=== PATIENT | female | born 1955 | race Caucasian/White ===

== ENCOUNTER 2016-11-23 20:46 | Inpatient (IN) | payer OTHER ==
[~2016-11-23] VITALS: Ht 172.7 cm; Wt 81.8 kg
[2016-11-23 21:10] LABS: BASO # 0.1 x10^3/uL (0.0-0.2); BASO % 1 % (0-3); EOS % 2 % (0-3); HEMATOCRIT 46.2 % (36.0-47.0); HEMOGLOBIN 15.1 g/dL (12.0-15.5); LYMPH # 6.3 x10^3/uL (1.0-4.8); LYMPH % 41 % (24-48); MEAN CORPUSCULAR HEMOGLOBIN 30 pg (25-35); MEAN CORPUSCULAR HGB CONC 33 g/dL (31-37); MEAN CORPUSCULAR VOLUME 92 fL (79-100); MONO % 9 % (0-9); NEUT % 47 % (31-73); PLATELET COUNT 336 x10^3/uL (140-400); RED BLOOD COUNT 5.01 x10^6/uL (3.50-5.40); WHITE BLOOD COUNT 15.4 x10^3/uL (4.0-11.0)
[2016-11-23] MEDS ORDERED: ASPIRIN 81 MG TAB.CHEW PO ONE ×2 (21:15→23:00)
[2016-11-23 21:21] LABS: INR 0.9 (0.8-1.1); PROTHROMBIN TIME PATIENT 11.4 SEC (11.7-14.0)
[2016-11-23 21:24] LABS: CALCIUM 9.8 mg/dL (8.5-10.1); CREATININE 0.9 mg/dL (0.6-1.0); GFR 63.9; POTASSIUM 3.6 mmol/L (3.5-5.1)
[2016-11-23 21:30] LABS: TOTAL BILIRUBIN 0.4 mg/dL (0.2-1.0)
[2016-11-23] MEDS ORDERED: NITROGLYCERIN SUBLINGUAL 0.4 MG BOTTLE OF 25. SL PRN (22:15)
[2016-11-23] MEDS ORDERED: ENOXAPARIN ** NOTE DOSE ** SYRINGE SQ ONE (22:15)
[2016-11-23] MEDS ORDERED: MORPHINE SULFATE 2 MG/ML DISP.SYRIN. IV PRN ×2 (22:15)
[2016-11-23] MEDS ORDERED: ONDANSETRON PF 4 MG/2 ML VIAL. IV PRN (22:15)
--- NOTE | 2016-11-23 22:15 | PHYS DOC ---
Past Medical History Past Medical History: Anxiety, Depression, Diabetes-Type II, High Cholesterol, Hypertension Past Surgical History: Hysterectomy, Other Additional Past Surgical Histo: PNEUMOTHORAX,"HOLE IN DIAPHRAGM",OVARIAN CYST Additional Information: 1 PPD Alcohol Use: None Drug Use: None Adult General Chief Complaint Chief Complaint: CHEST PAIN HPI HPI 61-year-old female presenting to the emergency department today with left-sided chest pain intermittently over the past few days. She describes it as a pressure radiates to her left shoulder and has an intermittent shortness of breath. She denies cough nausea vomiting or diaphoresis. She has a history of diabetes high cholesterol hypertension family history of heart disease and has a history of smoking. She denies history of blood clot family history of blood clot unilateral leg swelling hemoptysis. Review of systems is negative for nausea vomiting diaphoresis abdominal pain fevers or chills. All other review of systems is negative unless otherwise noted in history of present illness. Review of Systems Review of Systems SEE ABOVE. Current Medications Current Medications Current Medications Medications (Trade) Dose Ordered Sig/Vamsi Start Time Stop Time Status Last Admin Dose Admin Aspirin (Children'S Aspirin) 324 mg 1X ONCE 11/23/16 21:15 11/23/16 21:55 DC Allergies Allergies Allergies Coded Allergies Type Severity Reaction Last Updated Verified No Known Drug Allergies 11/23/16 No Physical Exam Physical Exam Constitutional: Well developed, well nourished, no acute distress, non-toxic appearance. HENT: Normocephalic, atraumatic, bilateral external ears normal, oropharynx moist, no oral exudates, nose normal. [] Eyes: PERRLA, EOMI, conjunctiva normal, no discharge. Neck: Normal range of motion, no tenderness, supple, no stridor. [] Cardiovascular:Heart rate regular rhythm, no murmur [] Lungs & Thorax: Bilateral breath sounds clear to auscultation Abdomen: Bowel sounds normal, soft, no tenderness, no masses, no pulsatile masses. [] Skin: Warm, dry, no erythema, no rash. Back: No tenderness, no CVA tenderness. [] Extremities: No tenderness, no cyanosis, no clubbing, ROM intact, no edema. Neurologic: Alert and oriented X 3, normal motor function, normal sensory function, no focal deficits noted. [] Psychologic: Affect normal, judgement normal, mood normal. Current Patient Data Vital Signs Vital Signs Date Time Temp Pulse Resp B/P Pulse Ox O2 Delivery O2 Flow Rate FiO2 11/23/16 21:50 84 139/67 95 Room Air 11/23/16 20:53 97.8 32 97.8 Lab Values Laboratory Tests Test 11/23/16 21:00 White Blood Count 15.4x10^3/uL (4.0-11.0) H Red Blood Count 5.01x10^6/uL (3.50-5.40) Hemoglobin 15.1g/dL (12.0-15.5) Hematocrit 46.2% (36.0-47.0) Mean Corpuscular Volume 92fL (79-100) Mean Corpuscular Hemoglobin 30pg (25-35) Mean Corpuscular Hemoglobin Concent 33g/dL (31-37) Red Cell Distribution Width 14.0% (11.5-14.5) Platelet Count 336x10^3/uL (140-400) Neutrophils (%) (Auto) 47% (31-73) Lymphocytes (%) (Auto) 41% (24-48) Monocytes (%) (Auto) 9% (0-9) Eosinophils (%) (Auto) 2% (0-3) Basophils (%) (Auto) 1% (0-3) Neutrophils # (Auto) 7.2x10^3uL (1.8-7.7) Lymphocytes # (Auto) 6.3x10^3/uL (1.0-4.8) H Monocytes # (Auto) 1.4x10^3/uL (0.0-1.1) H Eosinophils # (Auto) 0.3x10^3/uL (0.0-0.7) Basophils # (Auto) 0.1x10^3/uL (0.0-0.2) Prothrombin Time 11.4SEC (11.7-14.0) L Prothrombin Time INR 0.9 (0.8-1.1) PTT 34SEC (24-38) Sodium Level 140mmol/L (136-145) Potassium Level 3.6mmol/L (3.5-5.1) Chloride Level 100mmol/L (98-107) Carbon Dioxide Level 31mmol/L (21-32) Anion Gap 9 (6-14) Blood Urea Nitrogen 10mg/dL (7-20) Creatinine 0.9mg/dL (0.6-1.0) Estimated GFR (Cockcroft-Gault) 63.9 BUN/Creatinine Ratio 11 (6-20) Glucose Level 120mg/dL (70-99) H Calcium Level 9.8mg/dL (8.5-10.1) Total Bilirubin 0.4mg/dL (0.2-1.0) Aspartate Amino Transferase (AST) 15U/L (15-37) Alanine Aminotransferase (ALT) 18U/L (14-59) Alkaline Phosphatase 72U/L (46-116) Troponin I Quantitative 0.384ng/mL (0.000-0.055) CO-Yct-Z-Type Natriuretic Peptide 1053pg/mL (0-124) H Total Protein 8.0g/dL (6.4-8.2) Albumin 4.0g/dL (3.4-5.0) Albumin/Globulin Ratio 1.0 (1.0-1.7) Lipase 227U/L (73-393) Laboratory Tests 11/23/16 21:00 Laboratory Tests 11/23/16 21:00 EKG EKG [] EKG shows sinus rhythm with a regular rate. [place] is leftward. Intervals are within normal limits. Mild ST depression in lead V5 and V6. Radiology/Procedures Radiology/Procedures [] Chest x-ray shows no obvious infiltrate or pneumothorax. Course & Med Decision Making Course & Med Decision Making Pertinent Labs and Imaging studies reviewed. (See chart for details) [] 61-year-old female presenting to the emergency department today with chest pain. Afebrile with mild tachypnea and elevated blood pressure. Otherwise physical exam unremarkable. Clear lungs to auscultation. EKG shows mild ST depression. Troponin positive. Aspirin given. Lovenox given. Elevated leukocytosis without obvious infiltrate on x-ray. Patient afebrile. Otherwise proBNP mildly elevated. Patient was subsequently admitted to our hospital for further evaluation workup and care. Cardiology consultation was placed. Dragon Disclaimer Dragon Disclaimer This electronic medical record was generated, in whole or in part, using a voice recognition dictation system. Departure Departure Impression: Primary Impression: NSTEMI (non-ST elevated myocardial infarction) Disposition: 09 ADMITTED INPATIENT Admitting Physician: Crystal Cooper Condition: STABLE YOLANDE CARLISLE MD Nov 23, 2016 22:15
[2016-11-24] VITALS (7 sets, daily range): BP systolic 122–156; BP diastolic 68–78
[2016-11-24] MEDS ORDERED: PNEUMOCOCCAL VAX SCREEN BY RX. MC ONE (01:45)
[2016-11-24] MEDS ORDERED: INFLUENZA VAX SCREEN BY RX. MC ONE (01:45)
[2016-11-24] MEDS ORDERED: METF10002 PO (02:02)
[2016-11-24] MEDS ORDERED: HYDR12.53 PO (02:03)
[2016-11-24] MEDS ORDERED: FLUO20CA8 PO (02:04)
[2016-11-24] MEDS ORDERED: SIMV80TA3 PO (02:05)
[2016-11-24 05:18] LABS: BASO # 0.1 x10^3/uL (0.0-0.2); BASO % 0 % (0-3); EOS % 3 % (0-3); HEMATOCRIT 41.9 % (36.0-47.0); LYMPH # 6.7 x10^3/uL (1.0-4.8); LYMPH % 48 % (24-48); MEAN CORPUSCULAR HEMOGLOBIN 30 pg (25-35); MEAN CORPUSCULAR HGB CONC 33 g/dL (31-37); MEAN CORPUSCULAR VOLUME 91 fL (79-100); MONO % 10 % (0-9); NEUT % 39 % (31-73); PLATELET COUNT 337 x10^3/uL (140-400); RED BLOOD COUNT 4.62 x10^6/uL (3.50-5.40); WHITE BLOOD COUNT 14.2 x10^3/uL (4.0-11.0)
[2016-11-24 05:26] LABS: CALCIUM 9.4 mg/dL (8.5-10.1); CREATININE 0.8 mg/dL (0.6-1.0); GFR 73.2; POTASSIUM 3.8 mmol/L (3.5-5.1)
[2016-11-24] MEDS ORDERED: ALPRAZOLAM 1 MG TABLET PO PRN (07:30)
--- NOTE | 2016-11-24 08:21 | RAD ---
Single view chest History:Left side chest pain radiating to the left arm today An AP view of the chest is submitted. Comparison: 05/02/2008. Findings: There is no significant infiltrate, pleural effusion, or pneumothorax. The pericardial cardiac silhouette is within normal limits in size. The trachea is in the midline. There is again likely granuloma left lung base. Impression: There is no radiographic evidence of acute cardiopulmonary disease.
[2016-11-24] MEDS ORDERED: FLU VACC QUAD 2016-17 (36MOS+)/PF 0.5 ML SYRINGE. VAX IM ONE (09:00)
[2016-11-24] MEDS ORDERED: PNEUMOC CONJ VACC 23-VALENT 0.5 ML VIAL. VAX IM ONE (09:00)
[2016-11-24] MEDS: METFORMIN 1,000 MG TABLET PO SCH ×2 (09:42→17:16)
[2016-11-24] MEDS: HYDROCHLOROTHIAZIDE 12.5 MG CAPSULE. PO SCH (09:42)
[2016-11-24] MEDS ORDERED: ZOLPIDEM 5 MG TABLET. PO PRN (10:30)
[2016-11-24] MEDS ORDERED: NITROGLYCERIN SUBLINGUAL 0.4 MG BOTTLE OF 25. SL PRN (10:30)
[2016-11-24] MEDS ORDERED: 0.9 % SODIUM CHLORIDE 10 ML DISP.SYRIN. IV PRN (10:30)
--- NOTE | 2016-11-24 10:40 | PDOC ---
Provider Note Provider Note H&P dictated # [id number], chest pain with slightly elevated troponin in a pt that has a long history of smoking, HTN, DM, HLP and anxiety admitted for further cardiac testing Sandra JUÁREZ MD Nov 24, 2016 10:40
[2016-11-24 11:08] LABS: CKMB INDEX 3.4 % (0-4); CKMB MASS 3.2 ng/mL (0.0-3.6)
[2016-11-24] MEDS ORDERED: DEXTROSE 50% 25 GM / 50ML DISP.SYRIN. IV PRN (11:15)
[2016-11-24] MEDS ORDERED: ANTI-COAG MONITOR BY PHARMACY. MC PRN (11:15)
[2016-11-24] MEDS: INSULIN ASPART 300 UNITS/3 ML INSULN.PEN SQ SCH ×2 (12:00→17:00)
[2016-11-24] MEDS: SENNOSIDES/DOCUSATE 8.6/50MG TABLET. PO SCH ×2 (12:29→21:15)
[2016-11-24] MEDS: ENOXAPARIN ** NOTE DOSE ** SYRINGE SQ SCH ×2 (12:30→21:16)
--- NOTE | 2016-11-24 12:44 | CONS ---
DATE OF CONSULTATION: 11/24/2016 REASON FOR CONSULTATION: Elevated troponin. HISTORY OF PRESENT ILLNESS: The patient is a 61-year-old woman with past medical history as noted below, who comes into the hospital with chest pain. She reports over the course of the last few weeks and most prominently over the last few days, she has had chest pain that wakes her up at nighttime. During the day most of the time, she does not have any significant exertional dyspnea. She has not had any changes to her medical therapy. She reports compliance with her medical therapy. She denies any prior cardiovascular interventions. In the past, remotely about 10 years ago, she had sepsis and received intravenous antibiotics, but otherwise no obvious cardiovascular collapse has been noted in the past. PAST MEDICAL HISTORY: 1. Hypertension. 2. Tobacco abuse. 3. Dyslipidemia. 4. Diabetes. ALLERGIES: No known drug allergies, but SHE DOES HAVE ALLERGIES TO nickel. FAMILY HISTORY: Notable for congestive heart failure in her mother at the age of 55. SOCIAL HISTORY: The patient is and smokes approximately 1 pack per day. Denies any alcohol or illicit drug use. REVIEW OF SYSTEMS: Negative for 10 out of 14 systems reviewed, unless otherwise mentioned above in the HPI. MEDICATIONS: 1. Simvastatin 80 mg at bedtime. 2. Lovenox 80 mg subQ b.i.d. PHYSICAL EXAMINATION: VITAL SIGNS: Afebrile, heart rate 80, blood pressure 144/75, pulse ox 98% on 2liters, respiratory rate 18. GENERAL: She is alert and oriented and in mild distress due to chronic musculoskeletal pain. HEAD AND NECK: Unremarkable. CARDIAC: Regular rate and rhythm without any murmurs, rubs or gallops. LUNGS: Clear. ABDOMEN: Soft, nontender, nondistended. EXTREMITIES: Without any clubbing, cyanosis or edema. NEUROLOGIC: No focal deficits. MUSCULOSKELETAL: No trauma. DIAGNOSTIC STUDIES: 1. Cardiac enzymes are elevated initially at 0.3 and now at 0.8. 2. Creatinine, INR and CBC are within normal limits. 3. Chest x-ray is unremarkable. 4. EKG is unremarkable. IMPRESSION: 1. Chest pain with an elevated troponin consistent with non-ST elevation myocardial infarction. 2. Hypertension. 3. Tobacco abuse. RECOMMENDATIONS: 1. I had a long discussion with the patient about various approaches to treatment including noninvasive evaluation as well as invasive cardiac catheterization. -At this time, given her multiple risk factors and troponin elevation without any clear source other than ischemia to explain it such as hypertensive urgency, we will plan to rule out any obstructive coronary disease by obtaining a coronary angiogram on Saturday. -We will initiate her on Lovenox 80 mg subQ b.i.d. for anticoagulation. Continue statin and aspirin and we will initiate her on low dose beta blockade. Thank you for this consultation. JONAS LAUREN MD DR: EVELYN/adriana JOB#: [id number] / [id number] JODY
[2016-11-24] MEDS ORDERED: HEPARIN PF for SUB-Q USE 5,000 UNIT/0.5 ML VIAL. SQ SCH (14:00)
--- NOTE | 2016-11-24 14:08 | EKG ---
[facility] [address] [place] [address] Test Date: 2016-11-24 Test Time: 13:57:32 Pat Name: YUDELKA MELGAR Department: Room: 211 1 Gender: F Engineering Faculty: : 1955 Requested By: Sandra JUÁREZ Order Number: [id number] Reading MD: Miriam Lewis Measurements Intervals [place] Rate: 72 P: 36 CA: 186 QRS: -34 QRSD: 78 T: 64 QT: 392 QTc: 431 Interpretive Statements SINUS RHYTHM NORMAL ECG RI6.01 No previous ECG available for comparison Electronically Signed On 11-25-2016 19:12:04 PARTS COUNTERMAN by Miriam Lewis
[2016-11-24 17:02] LABS: CKMB INDEX 2.6 % (0-4); CKMB MASS 2.4 ng/mL (0.0-3.6)
--- NOTE | 2016-11-24 18:47 | EKG ---
[facility] [address] [place] [address] Test Date: 2016-11-23 Test Time: 20:56:10 Pat Name: YUDELKA MELGAR Department: Room: 211 1 Gender: F Director Of Collections: YVONNE EMT : 1955 Requested By: MILTON DÍAZ Order Number: [id number] Reading MD: Miriam Lewis Measurements Intervals [place] Rate: 80 P: 49 AL: 178 QRS: -28 QRSD: 80 T: 64 QT: 376 QTc: 437 Interpretive Statements SINUS RHYTHM LEFTWARD AXIS NORMAL ECG RI6.01 No previous ECG available for comparison Electronically Signed On 11-25-2016 19:00:45 PROJECT DEVELOPMENT ENGINEER by Miriam Lewis
[2016-11-24] MEDS ORDERED: SIMVASTATIN 40 MG TABLET. PO SCH (21:00)
[2016-11-24] MEDS: METOPROLOL TART IMMED RELEASE 25 MG TABLET PO SCH (21:17)
[2016-11-25 02:11] LABS: CKMB INDEX 2.1 % (0-4); CKMB MASS 1.5 ng/mL (0.0-3.6)
[2016-11-25 02:16] VITALS: BP 119/66
--- NOTE | 2016-11-25 03:02 | HP ---
ADMIT DATE: 11/23/2016 ADMISSION DIAGNOSIS: Chest pain, abnormal troponin and possible non-STEMI. HISTORY OF PRESENT ILLNESS: This is a 61-year-old white female without known coronary artery disease who has hypertension, hyperlipidemia, type 2 diabetes and anxiety and continues to smoke, who developed some cold and flu symptoms last week. She had some sinus drainage and was coughing up a little bit of green stuff, but that improved, but she then developed some left arm pain into her shoulder. She came to the office and was seen and evaluated and ____ anxious. This was yesterday. Her exam was pretty unremarkable, but her EKG showed a right-bundle branch block and a prolonged QT interval. After discussing treatment options, we decided on stopping her Prozac and setting her up for a stress test as an outpatient. After she left the office, she walked the dog and then laid down and took a nap but then awakened with further pain in her chest, which prompted her to come to the Emergency Room where she was seen and evaluated. She describes the pressure-like pain radiating into her left shoulder with intermittent shortness of breath. She did not have any nausea, vomiting or diaphoresis. PAST MEDICAL HISTORY: Significant for anxiety, depression, type 2 diabetes, hypertension, hyperlipidemia and strep sepsis. 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 She had significant organ dysfunction at that time. Her surgeries also include tonsillectomy and adenoidectomy. ALLERGIES: She has no known drug allergies. HOME MEDICATIONS: Include p.r.n. alprazolam, Prozac 60 mg daily, hydrochlorothiazide 12.5 mg daily, metformin 1000 mg b.i.d. and simvastatin 80 mg at bedtime. FAMILY HISTORY: Positive for hepatitis C, epilepsy, diabetes, lung cancer and heart failure. SOCIAL HISTORY: She is . She continues to smoke. REVIEW OF SYSTEMS: HEENT: Positive for recent URI symptoms. She denies any current sore throat, earache, sinus pain or pressure. CONSTITUTIONAL: Negative for fever or chills, but she has had some recent fatigue. CARDIAC: As above. PULMONARY: She denies any change in her baseline pulmonary function. She really had not had any cough or any sputum production. GASTROINTESTINAL: Negative for nausea, vomiting, abdominal pain, constipation or diarrhea. GENITOURINARY: Negative for dysuria. MUSCULOSKELETAL: Positive for some cramps in her left leg, particularly in the lateral thigh and the calf. Negative for joint pain or back issues. SKIN: Negative for bruising, rash or lesions. NEUROLOGIC: Negative for headache or seizures. PSYCHIATRIC: Positive for underlying anxiety and depression. PHYSICAL EXAMINATION: VITAL SIGNS: Show her to be afebrile, heart rate has been normal. Blood pressure was slightly elevated as high as 156/74 at about admission time and is 125/68 this morning. Oxygen saturations on room air are in the upper 90s. GENERAL: She is not in any acute distress. HEENT: Unremarkable. No sinus pain or pressure. Conjunctivae are clear. Sclerae are nonicteric. Mucous membranes are moist. Hearing is intact. Ocular muscles are intact. Head is normocephalic and atraumatic. NECK: Supple. HEART: Regular rate and rhythm. No murmurs are heard. LUNGS: Clear to auscultation. ABDOMEN: Soft, nondistended, nontender, no masses are palpable. MUSCULOSKELETAL: Shows no effusions or synovitis known to cause any pain with palpation in her left leg. There is no palpable cord in the leg. EXTREMITIES: Show no clubbing, cyanosis or edema. There are prior toe amputations present without abnormal healing. Distal pulses are intact. Extremities are warm. LABORATORY STUDIES: White count has come down from 15.4 to 14.2. Otherwise, CBC is unremarkable. Her monocytes are slightly high. Otherwise, her differential is nonspecific. Coags are unremarkable. Chemistries: Blood sugars range from 113 to 120. Her initial troponin was 0.384 with a followup of 0.810. BNP is slightly elevated at 1053. Chest x-ray: No acute findings. There is a likely granuloma in the left lung base. EKG shows a right bundle-branch block and some nonspecific changes. ASSESSMENT: Abnormal troponin with recent chest pain in a smoker with underlying hypertension, hyperlipidemia, type 2 diabetes and anxiety that is suggestive of a non-STEMI. PLAN: Third troponin is ordered. Followup EKG is ordered. She has not currently had pain and has not had any pain overnight. Dr. Ramos will see her in cardiac consultation. We will reassess her lipids, thyroid and A1c. Continue her home meds. Hold her Prozac as she did have a prolonged QT on her EKG yesterday. Decide between a stress MPI versus heart cath. W Bogdan JUÁREZ MD DR: PATEL/adriana JOB#: [id number] / [id number]
[2016-11-25 06:24] LABS: CALCIUM 9.3 mg/dL (8.5-10.1); CREATININE 0.7 mg/dL (0.6-1.0); GFR 85.4; MAGNESIUM 1.9 mg/dL (1.8-2.4); PHOSPHORUS 2.8 mg/dL (2.6-4.7); POTASSIUM 3.6 mmol/L (3.5-5.1)
[2016-11-25 06:25] LABS: CHOLESTEROL/HDL RATIO 3.1
[2016-11-25 07:00] VITALS: BP 121/65
[2016-11-25] MEDS: SENNOSIDES/DOCUSATE 8.6/50MG TABLET. PO SCH (08:00)
[2016-11-25] MEDS: METFORMIN 1,000 MG TABLET PO SCH (08:00)
[2016-11-25] MEDS ORDERED: ASPIRIN ENTERIC COATED 81 MG TABLET.DR. PO SCH (08:00)
[2016-11-25] MEDS: ENOXAPARIN ** NOTE DOSE ** SYRINGE SQ SCH (08:00)
[2016-11-25] MEDS: HYDROCHLOROTHIAZIDE 12.5 MG CAPSULE. PO SCH (08:00)
[2016-11-25] MEDS: METOPROLOL TART IMMED RELEASE 25 MG TABLET PO SCH (08:01)
[2016-11-25] MEDS: INSULIN ASPART 300 UNITS/3 ML INSULN.PEN SQ SCH ×2 (08:01→12:00)
[2016-11-25 10:50] VITALS: BP 140/75
--- NOTE | 2016-11-25 11:39 | PDOC ---
PROGRESS NOTES Subjective Subjective No chest pain, most recent EKG showed resolution of RBBB and now normal QT but off Prozac since Saturday, anticipating heart cath tomorrow, her 3rd troponin was going back down. Her cold symptoms have resolved but she has some pain in her left hip from sleeping on her side Objective Objective Vital Signs Date Time Temp Pulse Resp B/P Pulse Ox O2 Delivery O2 Flow Rate FiO2 11/25/16 10:50 97.9 62 18 140/75 95 Room Air 97.9 Intake and Output 11/25/16 07:00 Intake Total 500 ml Balance 500 ml Intake Oral 500 ml # Voids 2 Physical Exam Abdomen: Normal bowel sounds, Soft Heart: Regular rate Extremities: No clubbing, No cyanosis, No edema General: Alert, Oriented X3, Cooperative HEENT: Atraumatic Lungs: Clear to auscultation MUSCULOSKELETAL: Other (left greater trochanteric tenderness) Neck: Supple Neuro: Normal speech Psych/Mental Status: Mental status NL Skin: No rashes, No breakdown Assessment Assessment Problems Medical Problems: (1) NSTEMI (non-ST elevated myocardial infarction) Status: Acute Plan Plan of Care heart cath tomorrow, will try Flector patch for her hip, she will need an antidepressant alternative to Prozac Comment Review of Relevant I have reviewed the following items cisco (where applicable) has been applied. Labs Laboratory Tests Test 11/23/16 21:00 11/24/16 04:10 11/24/16 04:20 11/24/16 10:00 White Blood Count 15.4x10^3/uL (4.0-11.0) 14.2x10^3/uL (4.0-11.0) Red Blood Count 5.01x10^6/uL (3.50-5.40) 4.62x10^6/uL (3.50-5.40) Hemoglobin 15.1g/dL (12.0-15.5) 14.0g/dL (12.0-15.5) Hematocrit 46.2% (36.0-47.0) 41.9% (36.0-47.0) Mean Corpuscular Volume 92fL (79-100) 91fL (79-100) Mean Corpuscular Hemoglobin 30pg (25-35) 30pg (25-35) Mean Corpuscular Hemoglobin Concent 33g/dL (31-37) 33g/dL (31-37) Red Cell Distribution Width 14.0% (11.5-14.5) 14.0% (11.5-14.5) Platelet Count 336x10^3/uL (140-400) 337x10^3/uL (140-400) Neutrophils (%) (Auto) 47% (31-73) 39% (31-73) Lymphocytes (%) (Auto) 41% (24-48) 48% (24-48) Monocytes (%) (Auto) 9% (0-9) 10% (0-9) Eosinophils (%) (Auto) 2% (0-3) 3% (0-3) Basophils (%) (Auto) 1% (0-3) 0% (0-3) Neutrophils # (Auto) 7.2x10^3uL (1.8-7.7) 5.6x10^3uL (1.8-7.7) Lymphocytes # (Auto) 6.3x10^3/uL (1.0-4.8) 6.7x10^3/uL (1.0-4.8) Monocytes # (Auto) 1.4x10^3/uL (0.0-1.1) 1.4x10^3/uL (0.0-1.1) Eosinophils # (Auto) 0.3x10^3/uL (0.0-0.7) 0.4x10^3/uL (0.0-0.7) Basophils # (Auto) 0.1x10^3/uL (0.0-0.2) 0.1x10^3/uL (0.0-0.2) Prothrombin Time 11.4SEC (11.7-14.0) Prothromb Time International Ratio 0.9 (0.8-1.1) Activated Partial Thromboplast Time 34SEC (24-38) Sodium Level 140mmol/L (136-145) 141mmol/L (136-145) Potassium Level 3.6mmol/L (3.5-5.1) 3.8mmol/L (3.5-5.1) Chloride Level 100mmol/L (98-107) 102mmol/L (98-107) Carbon Dioxide Level 31mmol/L (21-32) 28mmol/L (21-32) Anion Gap 9 (6-14) 11 (6-14) Blood Urea Nitrogen 10mg/dL (7-20) 11mg/dL (7-20) Creatinine 0.9mg/dL (0.6-1.0) 0.8mg/dL (0.6-1.0) Estimated GFR (Cockcroft-Gault) 63.9 73.2 BUN/Creatinine Ratio 11 (6-20) Glucose Level 120mg/dL (70-99) 113mg/dL (70-99) Calcium Level 9.8mg/dL (8.5-10.1) 9.4mg/dL (8.5-10.1) Total Bilirubin 0.4mg/dL (0.2-1.0) Aspartate Amino Transf (AST/SGOT) 15U/L (15-37) Alanine Aminotransferase (ALT/SGPT) 18U/L (14-59) Alkaline Phosphatase 72U/L (46-116) Troponin I Quantitative 0.384ng/mL (0.000-0.055) 0.810ng/mL (0.000-0.055) 0.704ng/mL (0.000-0.055) RZ-Mhg-E-Type Natriuretic Peptide 1053pg/mL (0-124) Total Protein 8.0g/dL (6.4-8.2) Albumin 4.0g/dL (3.4-5.0) Albumin/Globulin Ratio 1.0 (1.0-1.7) Lipase 227U/L (73-393) Creatine Kinase 95U/L (26-192) Creatine Kinase MB (Mass) 3.2ng/mL (0.0-3.6) Creatine Kinase MB Relative Index 3.4% (0-4) Test 11/24/16 12:16 11/24/16 16:20 11/24/16 16:58 11/24/16 21:13 Glucose (Fingerstick) 87mg/dL (70-99) 80mg/dL (70-99) 104mg/dL (70-99) Creatine Kinase 94U/L (26-192) Creatine Kinase MB (Mass) 2.4ng/mL (0.0-3.6) Creatine Kinase MB Relative Index 2.6% (0-4) Test 11/25/16 00:01 11/25/16 05:00 11/25/16 07:56 Creatine Kinase 72U/L (26-192) Creatine Kinase MB (Mass) 1.5ng/mL (0.0-3.6) Creatine Kinase MB Relative Index 2.1% (0-4) Sodium Level 140mmol/L (136-145) Potassium Level 3.6mmol/L (3.5-5.1) Chloride Level 101mmol/L (98-107) Carbon Dioxide Level 29mmol/L (21-32) Anion Gap 10 (6-14) Blood Urea Nitrogen 14mg/dL (7-20) Creatinine 0.7mg/dL (0.6-1.0) Estimated GFR (Cockcroft-Gault) 85.4 Glucose Level 70mg/dL (70-99) Calcium Level 9.3mg/dL (8.5-10.1) Phosphorus Level 2.8mg/dL (2.6-4.7) Magnesium Level 1.9mg/dL (1.8-2.4) Triglycerides Level 131mg/dL (0-150) Cholesterol Level 150mg/dL (0-200) LDL Cholesterol, Calculated 76mg/dL (0-100) VLDL Cholesterol, Calculated 26mg/dL (0-40) HDL Cholesterol 48mg/dL (40-60) Cholesterol/HDL Ratio 3.1 Thyroid Stimulating Hormone (TSH) 1.022uIU/mL (0.358-3.74) Glucose (Fingerstick) 82mg/dL (70-99) Laboratory Tests Test 11/24/16 12:16 11/24/16 16:20 11/24/16 16:58 11/24/16 21:13 Glucose (Fingerstick) 87mg/dL (70-99) 80mg/dL (70-99) 104mg/dL (70-99) Creatine Kinase 94U/L (26-192) Creatine Kinase MB (Mass) 2.4ng/mL (0.0-3.6) Creatine Kinase MB Relative Index 2.6% (0-4) Test 11/25/16 00:01 11/25/16 05:00 11/25/16 07:56 Creatine Kinase 72U/L (26-192) Creatine Kinase MB (Mass) 1.5ng/mL (0.0-3.6) Creatine Kinase MB Relative Index 2.1% (0-4) Sodium Level 140mmol/L (136-145) Potassium Level 3.6mmol/L (3.5-5.1) Chloride Level 101mmol/L (98-107) Carbon Dioxide Level 29mmol/L (21-32) Anion Gap 10 (6-14) Blood Urea Nitrogen 14mg/dL (7-20) Creatinine 0.7mg/dL (0.6-1.0) Estimated GFR (Cockcroft-Gault) 85.4 Glucose Level 70mg/dL (70-99) Calcium Level 9.3mg/dL (8.5-10.1) Phosphorus Level 2.8mg/dL (2.6-4.7) Magnesium Level 1.9mg/dL (1.8-2.4) Triglycerides Level 131mg/dL (0-150) Cholesterol Level 150mg/dL (0-200) LDL Cholesterol, Calculated 76mg/dL (0-100) VLDL Cholesterol, Calculated 26mg/dL (0-40) HDL Cholesterol 48mg/dL (40-60) Cholesterol/HDL Ratio 3.1 Thyroid Stimulating Hormone (TSH) 1.022uIU/mL (0.358-3.74) Glucose (Fingerstick) 82mg/dL (70-99) Medications Current Medications Aspirin (Children'S Aspirin) 324 mg 1X ONCE PO ; Start 11/23/16 at 21:15; Stop 11/23/16 at 21:55; Status DC Nitroglycerin (Nitrostat) 0.4 mg PRN Q5MIN PRN SL CHEST PAIN; Start 11/23/16 at 22:15; Stop 11/24/16 at 13:14; Status DC Morphine Sulfate 2 mg PRN Q1HR PRN IV SEVERE PAIN; Start 11/23/16 at 22:15 Enoxaparin Sodium (Lovenox 80mg Syringe) 80 mg 1X ONCE SQ Last administered on 11/23/16t 22:49; Start 11/23/16 at 22:15; Stop 11/23/16 at 22:16; Status DC Ondansetron HCl (Zofran) 4 mg PRN Q8HRS PRN IV NAUSEA/VOMITING; Start 11/23/16 at 22:15; Stop 11/24/16 at 22:14; Status DC Morphine Sulfate 2 mg PRN Q2HR PRN IV PAIN; Start 11/23/16 at 22:15; Stop 11/24 at 13:14; Status DC Aspirin (Children'S Aspirin) 324 mg 1X ONCE PO Last administered on 11/23/16 23:02; Start 11/23/16 at 23:00; Stop 11/23/16 at 23:16; Status DC Info (Do NOT chart on this placeholder) 1 each 1X ONCE MC ; Start 11/24/16 at 01:45; Stop 11/24/16 at 01:46; Status UNV Pneumococcal Polyvalent Vaccine (Do NOT chart on this placeholder) 1 each 1X ONCE MC ; Start 11/24/16 at 01:45; Stop 11/24/16 at 01:46; Status UNV Influenza Virus Vaccine Quadrival (Fluarix Quad [id number] Syringe) 0.5 ml ONCE ONCE VAX IM Last administered on 11/24/16 09:44; Start 11/24/16 at 09:00; Stop 11/24/16 at 09:01; Status DC Pneumococcal Polyvalent Vaccine (Pneumovax 23) 0.5 ml ONCE ONCE VAX IM Last administered on 11/24/16 09:46; Start 11/24/16 at 09:00; Stop 11/24/16 at 09:01 ; Status DC Hydrochlorothiazide (Microzide) 12.5 mg DAILY PO Last administered on 08:00; Start 11/24/16 at 09:00 Metformin HCl (Glucophage) 1,000 mg BIDWMEALS PO Last administered on 08:00; Start 11/24/16 at 08:00 Simvastatin (Zocor) 80 mg QHS PO Last administered on 11/24/16 21:15; Start at 21:00 Alprazolam (Xanax) 1 mg Q6HRS PRN PO ANXIETY / AGITATION Last administered on 14:31; Start 11/24/16 at 07:30 Nitroglycerin (Nitrostat) 0.4 mg PRN Q5MIN PRN SL CHEST PAIN; Start 11/24/16 at 10:30 Zolpidem Tartrate (Ambien) 5 mg PRN QHS PRN PO INSOMNIA; Start 11/24/16 at 10: 30 Heparin Sodium (Porcine) 5,000 unit Q8HRS SQ ; Start 11/24/16 at 14:00; Stop 08/30 at 14:00; Status DC Sodium Chloride (Normal Saline Flush) 3 ml QSHIFT PRN IV AFTER MEDS AND BLOOD DRAWS; Start 11/24/16 at 10:30 Senna/Docusate Sodium (Senna Plus) 1 tab BID PO Last administered on 11/25/16 08:00; Start 11/24/16 at 11:00 Enoxaparin Sodium (Lovenox 80mg Syringe) 80 mg Q12HR SQ Last administered on 08:00; Start 11/24/16 at 11:30 Info (Anti-Coagulation Monitoring By Pharmacy) 1 each PRN DAILY PRN MC SEE COMMENTS; Start 11/24/16 at 11:15 Insulin Aspart (Novolog) 0-5 UNITS TIDWMEALS SQ ; Start 11/24/16 at 12:00 Dextrose 12.5 gm PRN Q15MIN PRN IV SEE COMMENTS; Start 11/24/16 at 11:15 Aspirin (Ecotrin) 81 mg DAILYWBKFT PO Last administered on 11/25/16 08:00; Start 11/25/16 at 08:00 Metoprolol Tartrate (Lopressor) 25 mg BID PO Last administered on 11/25/16 08: 01; Start 11/24/16 at 21:00 Active Scripts Active Reported Simvastatin 80 Mg Tablet 1 Tab PO QHS Fluoxetine Hcl 20 Mg Capsule 1 Cap PO DAILY Hydrochlorothiazide Capsule (Hydrochlorothiazide) 12.5 Mg Capsule 1 Cap PO DAILY Metformin Hcl 1,000 Mg Tablet 1 Tab PO BID Vitals/I & O Vital Sign - Last 24 Hours 11/24/16 11/24/16 11/24/16 11/24/16 15:00 20:00 20:44 21:17 Temp 98.1 98.3 98.1 98.3 Pulse 79 70 80 Resp 18 B/P 122/75 123/74 126/73 Pulse Ox 97 96 O2 Delivery Room Air Room Air Room Air 11/24/16 11/25/16 11/25/16 2/12/17 23:44 02:16 07:00 08:00 Temp 98.1 97.9 98.0 98.1 97.9 98.0 Pulse 63 59 60 Resp 20 18 16 B/P 123/75 119/66 121/65 Pulse Ox 98 97 O2 Delivery Room Air Room Air Room Air Room Air 11/25/16 11/25/16 08:01 10:50 Temp 97.9 97.9 Pulse 60 62 Resp 18 B/P 121/65 140/75 Pulse Ox 95 O2 Delivery Room Air Intake and Output 11/24/16 11/24/16 11/25/16 15:00 23:00 07:00 Intake Total 200 ml 300 ml Balance 200 ml 300 ml Sandra JUÁREZ MD Nov 25, 2016 11:39
[2016-11-25] MEDS ORDERED: DICLOFENAC SODIUM 1% TOPICAL GEL 100GM TUBE. TP SCH (12:00)
== END 2016-11-25 15:07 | disposition left against medical advice (07) | DRG 282 ==
LOC: ER 20:46 → 2 NORTH 22:11
PROVIDERS: ADMIT Family Medicine; ATTEND Family Medicine
DX: I21.4 Non-ST elevation (NSTEMI) myocardial infarction (principal); F41.9 Anxiety disorder, unspecified; E11.9 Type 2 diabetes mellitus without complications; E78.00 Pure hypercholesterolemia, unspecified; E78.5 Hyperlipidemia, unspecified; F17.210 Nicotine dependence, cigarettes, uncomplicated; I45.10 Unspecified right bundle-branch block; I10 Essential (primary) hypertension; F32.9 Major depressive disorder, single episode, unspecified; I45.4 Nonspecific intraventricular block; Z80.1 Family history of malignant neoplasm of trachea, bronchus and lung; Z82.0 Family history of epilepsy and other diseases of the nervous system; Z90.710 Acquired absence of both cervix and uterus; Z82.49 Family history of ischemic heart disease and other diseases of the circulatory system; Z79.82 Long term (current) use of aspirin; Z79.899 Other long term (current) drug therapy; Z83.3 Family history of diabetes mellitus; Z89.429 Acquired absence of other toe(s), unspecified side
CPT/HCPCS: 36415; 71010; 80048; 80053; 80061; 82550; 82553; 82947; 83036; 83690; 83735; 83880; 84100; 84443; 84484; 85027; 85610; 85730; 90686; 90732; 93005; 96372; J1650; J1815; 99285-25